=== PATIENT | female | born 1965 | race Caucasian/White ===

== ENCOUNTER 2020-11-09 08:42 | Day surgery (SDC) | payer OTHER ==
[2020-11-09] MEDS: Ringers Lactate 1,000 ML IV ONE (09:00)
[2020-11-09] MEDS ORDERED: CEFAZOLIN/SWI 1gm 1 GM/10 ML SYR ONE (09:36)
[2020-11-09] MEDS ORDERED: FENTANYL CITR 100 MCG/2 ML ONE (10:11)
[2020-11-09] MEDS ORDERED: propofoL 200 MG/20 ML VIAL IV ONE (10:11)
[2020-11-09] MEDS ORDERED: dexAMETHasone 10 MG/ML VIAL ONE (10:11)
[2020-11-09] MEDS ORDERED: MIDAZOLAM HCL 2 MG/2 ML INJ ONE (10:11)
[2020-11-09] MEDS ORDERED: LIDOCAINE 2% MPF 5 ML VIAL ONE (10:12)
--- OUTSIDE RECORDS SUMMARY | 2020-11-09 10:12 | XMS REPORT | Continuity of Care Document ---
:1965 Author Organization [facility] t Address [address] [place] [address] Dr. Lee [address] [place] [address] Care Team Providers Name Role Phone Asked, Pcp Primary Care Physician Unavailable Problems Condition Condition Condition Status Onset Resolution Last Treating Co mments Source Name Details Category Date Date Treatment Clinician Date Vitamin D Vitamin D Problem Active 2019 Jag autumn deficiency Deficiency 4-03 Fa nam 00:00: Practic 00 e Hyperlipid Hyperlipid Problem Active 2019 [facility] emia emia 4-03 Family 00:00: Practic 00 e Syringomye Syringomye Problem Active 2019-0 [facility] grady grady 4-03 Family 00:00: Practic 00 e Chiari Chiari Problem Active 2019-0 [facility] malformati Malformati 4-03 Fa nam on on 00:00: Practic 00 e Spinal Spinal Disease Active 2019- Rena Lara arachnoid arachnoid 3-23 Meth rosendo cyst cyst 00:00: st 00 Syringomye Syringomye Disease Active 2019-0 [place] grady grady 3-23 Methodi 00:00: st 00 Arnold-Chi Arnold-Chi Disease Active 2019-0 [place] tariq tariq 3-23 Methodi malformati malformati 00:00: st on, type I on, type I 00 Allergies, Adverse Reactions, Alerts This patient has no known allergies or adverse reactions. Family History Family Member Diagnosis Comments Start Date Stop Date Source Natural brother Bladder Cancer [place] [facility] Natural father Heart attack Rena Lara [facility] Natural father Hypertension [facility] Natural mother Heart attack [facility] Natural mother Hyperlipidemia [place] [facility] Natural mother Hypertension [facility] Social History Social Habit Start Date Stop Date Quantity Comments Source History of Cigarette Smoker Rena Lara [facility] tobacco use History [facility] Meth odist Alcohol Std Drinks History [facility] Alcohol Binge Sex Assigned At [facility] ethodist Tobacco use and 2019-02-06 2019-02-06 Current user [facility] exposure 00:00:00 00:00:00 Alcohol intake 2019-02-06 2019-02-06 Current Rena Lara Me thodist 00:00:00 00:00:00 non-drinker of alcohol (finding) History SDOH 2019-02-06 2019-02-06 1 Rena Lara Meth odist Alcohol Frequency 00:00:00 00:00:00 Smoking Status Start Date Stop Date Source Heavy Tobacco Smoker [facility] Practice Current every day smoker 2019-02-06 00:00:00 Damian Jacinto Medications Ordered Filled Start Stop Current Ordering Indication Dosage Frequency Signature Comments Components Source Medication Medication Date Date Medication? Clinician (SIG) Name Name eszopiclone eszopiclone No eszopiclon [facility] 3 mg tablet 3 mg tablet e 3 mg Family Take 1 Take 1 tablet Practic daily daily Take 1 e daily gabapentin gabapentin No gabapentin [facility] 600 mg 600 mg 600 mg Family tablet take tablet take tablet Practic 1 three 1 three take 1 e times daily times daily three times daily quetiapine quetiapine No quetiapine [facility] 25 mg 25 mg 25 mg Family tablet take tablet take tablet Practic 1 daily 1 daily take 1 e daily Vital Signs Vital Name Observation Time Observation Value Comments Source BP Diastolic 2019-02-18 00:00:00 74 mm[Hg] [facility] Height 2019-02-18 00:00:00 65 [in_i] [facility] BMI (Body Mass 2019-02-18 00:00:00 27.6 kg/m2 [facility] Family Index) Practice BP Systolic 2019-02-18 00:00:00 116 mm[Hg] [facility] Body Weight 2019-02-18 00:00:00 166 [lb_av] [facility] Procedures Procedure Date / Time Performed Performing Clinician Alicia e bone density 2019-02-18 00:00:[address] [facility] ly Practice DEXA 2019-02-18 00:00:00 [facility] Practice MAMMO, screening, 2019-02-18 00:00:00 [facility] nam bilateral Practice Plan of Care Planned Activity Planned Date Details Comments Source Future Scheduled 2020-06-18 INFLUENZA VACCINE [place] [facility] Test 00:00:00 [code = INFLUENZA VACCINE] Diagnostic Test 2019-02-18 CBC w/ auto diff [facility] Pending 00:00:00 [code = CBC w/ auto Practice diff] Diagnostic Test 2019-02-18 CMP, serum or plasma Vill age Family Pending 00:00:00 [code = CMP, serum or Practi ce plasma] Diagnostic Test 2019-02-18 lipid panel, serum Vill[facility] e Family Pending 00:00:00 [code = lipid panel, Practic e serum] Diagnostic Test 2019-02-18 vitamin D, [facility] Fami ly Pending 00:00:00 25-hydroxy, total, Practice serum [code = vitamin D, 25-hydroxy, total, serum] Future Scheduled 2016 BREAST CANCER [facility] thodist Test 00:00:00 SCREENING [code = BREAST CANCER SCREENING] Future Scheduled 2016 COLONOSCOPY SCREENING [place] [facility] Test 00:00:00 [code = COLONOSCOPY SCREENING] Future Scheduled 2016 SHINGLES VACCINES [place] [facility] Test 00:00:00 (#1) [code = SHINGLES VACCINES (#1)] Future Scheduled 1987 Screening for [facility] thodist Test 00:00:00 malignant neoplasm of cervix (procedure) [code = 267678388] Future Scheduled 1982 COVID-19 VACCINE (#1) [place] [facility] Test 00:00:00 [code = COVID-19 VACCINE (#1)] Encounters Start End Encounter Admission Attending Care Care Encounter Source Date/Time Date/Time Type Type Clinicians Facility Department ID 2019-02-18 2019-02-18 [facility] [place] - [id number] V illage 00:00:00 00:00:00 Alon[facility] Family Wang MD: Family Shaniqua wright 1961 [facility] [address], [place] [address] , Ph. Results This patient has no known results.
--- OUTSIDE RECORDS SUMMARY | 2020-11-09 10:12 | XMS REPORT | Clinical Summary ---
:1965 Author Organization [facility] Address [address] [place] [address] Care Team Providers Name Role Phone Asked, Pcp Primary Care Provider Unavailable Allergies No Known Active Allergies Medications No known medications Active Problems Problem Noted Date Spinal arachnoid cyst 02/07/2019 Syringomyelia 02/07/2019 Arnold-Chiari malformation, type I 02/07/2019 Medical History Medical History Date Comments Chronic cough Neck pain Family History Medical History Relation Name Comments Bladder Cancer Brother Heart attack Father Hypertension Father Heart attack Mother Hyperlipidemia Mother Hypertension Mother Relation Name Status Comments Brother Alive Father Mother Social History Tobacco Use Types Packs/Day Years Used Date Current Every Day Smoker Cigarettes Smokeless Tobacco: Current User Alcohol Use Drinks/Week oz/Week Comments No Alcohol Habits Answer Date Recorded How often do you have a drink containing alcohol? Never 02/06/2019 How many drinks containing alcohol do you have on a typical Not asked day when you are drinking? How often do you have six or more drinks on one occasion? No t asked Sex Assigned at Date Recorded Not on file Last Filed Vital Signs Not on file Plan of Treatment Health Maintenance Due Date Last Done Comments COVID-19 VACCINE (#1) 1982 CERVICAL CANCER SCREENING 1987 BREAST CANCER SCREENING 2016 COLONOSCOPY SCREENING 2016 SHINGLES VACCINES (#1) 2016 INFLUENZA VACCINE 06/18/2020 Results Not on fileafter 11/09/2019 Insurance Payer Benefit Plan / Subscriber ID Effective Dates Phone Addre ss Type Group [employer] [facility] [id number] 2018-Presen Exchange CHOICE EXCHANGE EXCHANGE t MARK[employer] Advance Directives For more information, please contact: [phone] Type Date Recorded 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
[2020-11-09] MEDS ORDERED: KETOROLAC 30 MG/ML INJ ONE (10:59)
[2020-11-09] MEDS ORDERED: ONDANSETRON 4 MG/2 ML VIAL ONE (10:59)
--- NOTE | 2020-11-09 11:05 | P.OP ---
Preoperative diagnosis: Posterior Neck Lipomatous Mass Postoperative diagnosis: Posterior Neck Lipomatous Mass Primary procedure: Excision of 4x3cm Posterior Neck Lipomatous Mass Anesthesia: GETA + Local Estimated blood loss: <2cc Specimen: Lipomatous mass Findings: 4x3 cm round lipomatous mass of posterior neck Complications: None Transferred to: Recovery Room Condition: Good
[2020-11-09] MEDS ORDERED: NS 0.9% VIAL 10 ML ONE (11:06)
[2020-11-09] MEDS ORDERED: EPHEDRINE SULF 50 MG/ML VIAL ONE (11:06)
--- NOTE | 2020-11-09 11:34 | OP ---
Date of Procedure: 11/09/2020 Surgeon: Kaveh Dhaliwal MD, Preoperative Diagnosis: Posterior neck lipomatous mass. Postoperative Diagnosis: Posterior neck lipomatous mass. Procedure Performed: Excision of a 4 x 3 cm posterior lipomatous neck mass. Anesthesia: General endotracheal plus local. Estimated Blood Loss: Less than 2 cc. Specimen: Lipomatous mass. Findings: 4 x 3 cm round lipomatous mass of the posterior neck. Complications: None. Disposition: Patient transferred to the recovery room in good condition. Procedure In Detail: After informed consent obtained. Patient was brought to the operating room, pr epped and draped in the usual sterile fashion. After adequate anesthesia was achieved, an area of th e posterior neck near the midline was anesthetized with 0.25% Marcaine, sharply incised transversely, and incision was carried down with a 15 blade down to subcutaneous tissues. Dissection continued do wn to expose a lipomatous mass found in this position approximately 4 cm x 3 cm. This was circumfere ntially dissected off the fascia overlying the muscle and taken out in its entirety using electrocaut monica without evidence of complication. The lipomatous mass was taken out intact. The specimen was th en passed off for pathologic examination. The area was irrigated multiple times. No additional hemo static maneuvers were required. Interrupted 3-0 Vicryl sutures were used to place the deep dermal la wai and then the skin was closed using a 4-0 Monocryl in a running fashion and Dermabond was placed o ranulfo top. Patient tolerated the procedure well without evidence of complication and transferred to stanesthesia Care Unit in good condition. All counts were correct at the end of the case. KEL/LYNDA Voice ID: [id number] Report ID: [id number]
[2020-11-09 12:10] VITALS: BP 123/88; TEMP 98; O2SAT 97
== END 2020-11-09 12:35 | disposition home or self-care (01) ==
LOC: OR 08:42
PROVIDERS: ATTEND Surgery
PROC: 0JB40ZZ Excision of Right Neck Subcutaneous Tissue and Fascia, Open Approach (ICD-10-PCS; principal; 2020-11-09 10:15)
DX: D17.0 Benign lipomatous neoplasm of skin and subcutaneous tissue of head, face and neck (principal); Z20.828 Contact with and (suspected) exposure to other viral communicable diseases
CPT/HCPCS: 88304; 21552; U0003; J2704; J2250; J3010; J1100; J0690; J7120; J2405; 88305

== ENCOUNTER 2022-04-28 22:52 | Emergency (ER) | payer OTHER ==
--- OUTSIDE RECORDS SUMMARY | 2022-04-28 22:54 | XMS REPORT | Continuity of Care Document ---
:1965 Author Organization [facility] Address [address] [place] [address] Dr. Lee [address] [place] [address] Care Team Providers Name Role Phone Jovon Baker Attending Clinician Unavailable Patil_S Attending Clinician Unavailable Patil_S Admitting Clinician Unavailable Payers Payer Name Policy Type Policy Number Effective Date Expiration Date dilmaFormerly [facility] [id number] 2018 [facility] [employer] RICHTER 00:00:[address] PROGRAM (HMO) Problems Condition Condition Condition Status Onset Resolution Last Treating Co mments Source Name Details Category Date Date Treatment Clinician Date Vitamin D Vitamin D Problem Active 2018- Jag autumn deficiency Deficiency 4-03 Fa nam 00:00: Practic 00 e Hyperlipid Hyperlipid Problem Active 2019- [place] emia emia 4-03 Family 00:00: Practic 00 e Syringomye Syringomye Problem Active 2019- [place] grady grady 4-03 Family 00:00: Practic 00 e Chiari Chiari Problem Active 2019-0 [place] malformati Malformati 4-03 Fa nam on on 00:00: Practic 00 e Allergies, Adverse Reactions, Alerts This patient has no known allergies or adverse reactions. Social History Smoking Status Start Date Stop Date Source Heavy Tobacco Smoker [facility] Medications Ordered Filled Start Stop Current Ordering Indication Dosage Frequency Signature Comments Components Source Medication Medication Date Date Medication? Clinician (SIG) Name Name eszopiclone eszopiclone No eszopiclon [facility] 3 mg tablet 3 mg tablet e 3 mg Family Take 1 Take 1 tablet Practic daily daily Take 1 e daily gabapentin gabapentin No gabapentin [facility] 600 mg 600 mg 600 mg Family tablet take tablet take tablet Practic 1 three 1 three take 1 e times daily times daily three times daily quetiapine quetiapine No quetiapine [facility] 25 mg 25 mg 25 mg Family tablet take tablet take tablet Practic 1 daily 1 daily take 1 e daily Vital Signs Vital Name Observation Time Observation Value Comments Source BP Diastolic 2019-02-18 00:00:00 74 mm[Hg] [facility] Height 2019-02-18 00:00:00 65 [in_i] [facility] BMI (Body Mass 2019-02-18 00:00:00 27.6 kg/m2 [facility] Index) Practice BP Systolic 2019-02-18 00:00:00 116 mm[Hg] [facility] Body Weight 2019-02-18 00:00:00 166 [lb_av] [facility] Procedures Procedure Date / Time Performed Performing Clinician [facility] e bone density 2019-02-18 00:00:00 [facility] yolanda Practice DEXA 2019-02-18 00:00:00 [facility] Practice MAMMO, screening, 2019-02-18 00:00:00 [facility] nam bilateral Practice Plan of Care Planned Activity Planned Date Details Comments Source Diagnostic Test 2019-02-18 CBC w/ auto diff [facility] Pending 00:00:00 [code = CBC w/ Practice auto diff] Diagnostic Test 2019-02-18 CMP, serum or [facility] Pending 00:00:00 plasma [code = Practice CMP, serum or plasma] Diagnostic Test 2019-02-18 lipid panel, serum [facility] octavia [facility] Pending 00:00:00 [code = lipid Practice panel, serum] Diagnostic Test 2019-02-18 vitamin D, [facility] Pending 00:00:00 25-hydroxy, total, Practice serum [code = vitamin D, 25-hydroxy, total, serum] Encounters Start End Encounter Admission Attending Care Care Encounter Source Date/Time Date/Time Type Type Clinicians Facility Department ID 2021-12-13 Outpatient Baker, Crystal [facility] [id number] 2 Common 10:59:35 [id number] [facility] 2021-12-13 Outpatient Baker, Crystal [facility] [id number] 2 Common 10:59:25 [id number] [facility] 2020-12-21 2020-12-21 Outpatient Patil_S [facility] [id number] [facility] 01:35:00 01:35:00 [id number] Family Practic e 2019-02-18 2019-02-18 [place] [facility] [place] - [id number] V illage 00:00:00 00:00:00 [facility] Family Wang MD: Family Shaniqua wright [address] [facility] [address], [place] [address] , Ph. Results This patient has no known results.
[2022-04-29 02:55] LABS: Urine Blood Negative (Negative); Urine Glucose Negative (Negative); Urine Protein Negative (Negative)
[2022-04-29] MEDS ORDERED: DIAZEPAM 5 MG TABLET ONE (03:48)
[2022-04-29] MEDS ORDERED: KETOROLAC 30 MG/ML INJ ONE (03:49)
--- NOTE | 2022-04-29 04:14 | ER ---
Nurse's Notes [facility] Name: Lola Cormier Age: 56 yrs Sex: Female : 1965 Arrival Date: 04/28/2022 Time: 22:53 Bed 9 Private MD: Diagnosis: Sciatica, left side Presentation: 04/28 23:30 Chief complaint: Patient states: I am having left lower back pain. It radiates down my jb4 left leg. I do have a history of sciatic nerve pain. Coronavirus screen: At this time, the client does not indicate any symptoms associated with coronavirus-19. Ebola Screen: No symptoms or risks identified at this time. Initial Sepsis Screen: Does the patient meet any 2 criteria? No. Patient's initial sepsis screen is negative. Does the patient have a suspected source of infection? No. Patient's initial sepsis screen is negative. Risk Assessment: Do you want to hurt yourself or someone else? Patient reports no desire to harm self or others. Onset of symptoms was April 28, 2022. Transition of care: patient was not received from another setting of care. 23:30 Method Of Arrival: Wheelchair jb4 23:30 Acuity: MAMTA 3 jb4 Triage Assessment: 04/29 04:34 General: Appears in no apparent distress. Behavior is calm, cooperative, appropriate vc1 for age. Pain: Complains of pain in left low back and lumbar area. Historical: - Allergies: 04/28 23:32 Hydrocodone-Acetaminophen; jb4 - Home Meds: 23:32 gabapentin oral [Active]; Lunesta oral [Active]; Seroquel Oral [Active]; cholesterol jb4 med [Active]; - PMHx: 23:32 high cholesterol; Chairi malformation; Syringomyelia; jb4 - PSHx: 23:32 None; jb4 - Immunization history:: Adult Immunizations up to date. - Social history:: Smoking status: Patient reports the use of cigarette tobacco products, smokes one pack cigarettes per day. Screenin/12 04:33 Abuse screen: Denies threats or abuse. Nutritional screening: No deficits noted. vc1 Tuberculosis screening: No symptoms or risk factors identified. Fall Risk None identified. Assessment: 03:53 Reassessment: Pt stated she does not want to have a CT done because she is having a MRI vc1 done on Saturday. 04:36 Reassessment: Patient and/or family updated on plan of care and expected duration. Pain vc1 level reassessed. Pt requests pain medication. Instructed patient that the suggests she follow up with her doctor. Pt states "I just spent 6 hours in pain for a steroid pack, this is the worst hospital ever.". Vital Signs: 04/28 23:30 BP 134 / 93; Pulse 94; Resp 16; Temp 97.0(TE); Pulse Ox 98% on R/A; Weight 79.38 kg jb4 (R); Height 5 ft. 5 in. (165.10 cm) (R); Pain 10/10; 23:30 Body Mass Index 29.12 (79.38 kg, 165.10 cm) jb4 ED Course: 22:53 Patient arrived in ED. bp1 23:32 Triage completed. jb4 23:35 Arm band placed on right wrist. 4 04/29 02:09 Brandin Perez MD is Attending Physician. [facility] 04:34 No provider procedures requiring assistance completed. IV discontinued, intact, vc1 bleeding controlled, No redness/swelling at site. Pressure dressing applied. 04:35 Patient has correct armband on for positive identification. Bed in low position. vc1 Administered Medications: 03:51 Drug: Ketorolac 30 mg Route: IM; Site: left deltoid; vc1 03:51 Drug: Valium (diazepam) 5 mg Route: PO; vc1 Medication: 04:36 VIS not applicable for this client. vc1 Outcome: 04:13 Discharge ordered by . [facility] 04:34 Discharged to home via wheelchair. vc1 04:34 Condition: good 04:34 Discharge instructions given to patient, Instructed on discharge instructions, follow up and referral plans. medication usage, Demonstrated understanding of instructions, follow-up care, medications, Prescriptions given X 1. 04:39 Patient left the ED. vc1 Signatures: Rush Mims, RN RN 4 Kaleigh Chavarria bp1 Brandin Perez MD MD 7 Felipa Hill RN RN vc1 Corrections: (The following items were deleted from the chart) 04/28 23:34 23:32 Home Meds: None; 4 [facility]
--- NOTE | 2022-04-29 04:14 | EDPHYS ---
Physician Documentation [facility] Name: Lola Cormier Age: 56 yrs Sex: Female : 1965 Arrival Date: 04/28/2022 Time: 22:53 Bed 9 Private MD: ED Physician Brandin Perez HPI: 04/29 03:10 This 56 yrs old Female presents to ER via Wheelchair with complaints of Low Back Pain. [facility] 03:10 The patient presents with pain that is acute, with no known mechanism of injury. The [facility] symptoms are located in the low back. The pain radiates to the left leg. The problem was sustained from unknown cause. 03:10 Onset: The symptoms/episode began/occurred 1 month(s) ago, and became persistent 1 [facility] weeks ago. Modifying factors: The patient symptoms are alleviated by nothing, the patient symptoms are aggravated by movement, walking. Associated signs and symptoms: Pertinent negatives: abdominal pain, chest pain, constipation, dysuria, fever, headache, hematuria, incontinence, nausea, numbness, tingling, urinary retention, vomiting, weakness. 03:10 Severity of symptoms: At their worst the symptoms were moderate, 4 day(s) ago, in the [facility] emergency department the symptoms are unchanged. Historical: - Allergies: 04/28 23:32 Hydrocodone-Acetaminophen; jb4 - Home Meds: 23:32 gabapentin oral [Active]; Lunesta oral [Active]; Seroquel Oral [Active]; cholesterol jb4 med [Active]; - PMHx: 23:32 high cholesterol; Chairi malformation; Syringomyelia; jb4 - PSHx: 23:32 None; jb4 - Immunization history:: Adult Immunizations up to date. - Social history:: Smoking status: Patient reports the use of cigarette tobacco products, smokes one pack cigarettes per day. ROS: 04/29 03:10 Constitutional: Negative for fever, chills, and weight loss, Eyes: Negative for injury, mh7 pain, redness, and discharge, ENT: Negative for injury, pain, and discharge, Neck: Negative for injury, pain, and swelling, Cardiovascular: Negative for chest pain, palpitations, and edema, Respiratory: Negative for shortness of breath, cough, wheezing, and pleuritic chest pain, Abdomen/GI: Negative for abdominal pain, nausea, vomiting, diarrhea, and constipation, : Negative for injury, bleeding, discharge, and swelling, Skin: Negative for injury, rash, and discoloration, Neuro: Negative for headache, weakness, numbness, tingling, and seizure, Psych: Negative for depression, anxiety, suicide ideation, homicidal ideation, and hallucinations, Allergy/Immunology: Negative for hives, rash, and allergies, Endocrine: Negative for neck swelling, polydipsia, polyuria, polyphagia, and marked weight changes, Hematologic/Lymphatic: Negative for swollen nodes, abnormal bleeding, and unusual bruising. Exam: 03:10 Head/Face: Normocephalic, atraumatic. Eyes: Pupils equal round and reactive to light, mh7 extra-ocular motions intact. Lids and lashes normal. Conjunctiva and sclera are non-icteric and not injected. Cornea within normal limits. Periorbital areas with no swelling, redness, or edema. Neck: Trachea midline, no thyromegaly or masses palpated, and no cervical lymphadenopathy. Supple, full range of motion without nuchal rigidity, or vertebral point tenderness. No Meningismus. Chest/axilla: Normal chest wall appearance and motion. Nontender with no deformity. No lesions are appreciated. Cardiovascular: Regular rate and rhythm with a normal S1 and S2. No gallops, murmurs, or rubs. Normal PMI, no JVD. No pulse deficits. Respiratory: Lungs have equal breath sounds bilaterally, clear to auscultation and percussion. No rales, rhonchi or wheezes noted. No increased work of breathing, no retractions or nasal flaring. Abdomen/GI: Soft, non-tender, with normal bowel sounds. No distension or tympany. No guarding or rebound. No evidence of tenderness throughout. Skin: Warm, dry with normal turgor. Normal color with no rashes, no lesions, and no evidence of cellulitis. MS/ Extremity: Pulses equal, no cyanosis. Neurovascular intact. Full, normal range of motion. Neuro: Awake and alert, GCS 15, oriented to person, place, time, and situation. Cranial nerves II-XII grossly intact. Motor strength 5/5 in all extremities. Sensory grossly intact. Cerebellar exam normal. Normal gait. Psych: Awake, alert, with orientation to person, place and time. Behavior, mood, and affect are within normal limits. 03:10 Constitutional: The patient appears in no acute distress, alert, awake, uncomfortable. 03:10 Back: pain, that is moderate, of the lumbar area and left low back, ROM is painful, with rotation to the right, with rotation to the left, normal spinal alignment noted, CVA tenderness, is absent, vertebral tenderness, is not appreciated, muscle spasm, is appreciated in the lumbar area and left low back, Straight leg raises: right lower extremity does not illicit pain, left lower extremity illicits pain, at 30 degrees. Vital Signs: 04/28 23:30 BP 134 / 93; Pulse 94; Resp 16; Temp 97.0(TE); Pulse Ox 98% on R/A; Weight 79.38 kg jb4 (R); Height 5 ft. 5 in. (165.10 cm) (R); Pain 10; 23:30 Body Mass Index 29.12 (79.38 kg, 165.10 cm) jb4 MDM: 04/29 04:10 Differential diagnosis: arthritis, strain, fracture, sciatica, Herniated disc UTI. Data [facility] reviewed: vital signs, nurses notes, lab test result(s), urinalysis. Data interpreted: Pulse oximetry: on room air is 98 %. Interpretation: normal. Counseling: I had a detailed discussion with the patient and/or guardian regarding: the historical points, exam findings, and any diagnostic results supporting the discharge/admit diagnosis, lab results, the need for outpatient follow up, to return to the emergency department if symptoms worsen or persist or if there are any questions or concerns that arise at home. Response to treatment: the patient's symptoms have markedly improved after treatment. ED course: Patient declined CT lumbar spine stating that she is scheduled for an MRI tomorrow. She requests to be discharged from the ER.. 04:13 Patient medically screened. [facility] 04/29 02:55 Order name: Urine Dipstick-Ancillary; Complete Time: 03:03 EDNY 04/29 02:08 Order name: Urine Dipstick-Ancillary (obtain specimen); Complete Time: 02:56 [facility] Administered Medications: 03:51 Drug: Ketorolac 30 mg Route: IM; Site: left deltoid; vc1 03:51 Drug: Valium (diazepam) 5 mg Route: PO; vc1 Disposition Summary: 04/29/22 04:13 Discharge Ordered Location: Home [facility] Problem: an ongoing problem [facility] Symptoms: have improved [facility] Condition: Stable [facility] Diagnosis - Sciatica, left side 7 Followup: [facility] - With: Private Physician - When: 1 - 2 days - Reason: Worsening of condition, Recheck today's complaints, Continuance of care, Re-evaluation by your physician Discharge Instructions: - Discharge Summary Sheet [facility] - Sciatica, [id number] Forms: - Medication Reconciliation Form [facility] - Thank You Letter [facility] - Antibiotic Education [facility] - Prescription Opioid Use [facility] Prescriptions: - Medrol (Yoel) 4 mg Oral Tablets, Dose Pack - take 1 tablet by ORAL route as directed - follow package instructions; 1 [facility] packet; Refills: 0, Product Selection Permitted Signatures: Dispatcher [employer] EDRush Cheung, RN RN jbBrandin Galarza MD MD 7 Felipa Hill RN RN vc1 Corrections: (The following items were deleted from the chart) 04/28 23:34 23:32 Home Meds: None; erin khan 04/29 04:07 03:23 Spine Lumbar Wo Con+CT.RAD.BRZ ordered. EDMS EDMS
[2022-04-29 04:45] VITALS: BP 134/93; TEMP 97; O2SAT 98
== END 2022-04-29 04:39 | disposition home or self-care (01) ==
LOC: ER 22:52
DX: M54.32 Sciatica, left side (principal); E78.00 Pure hypercholesterolemia, unspecified; F17.210 Nicotine dependence, cigarettes, uncomplicated; Z88.5 Allergy status to narcotic agent
CPT/HCPCS: 81003; 96372; 99283